=== PATIENT | male | born 1950 | race Caucasian/White ===

== ENCOUNTER 2016-04-16 11:58 | Inpatient (IN) | payer MEDICARE ==
[~2016-04-16] VITALS: Ht 170 cm; Wt 56.7 kg
[2016-04-16] VITALS (15 sets, daily range): BP systolic 92–112; BP diastolic 50–68
--- NOTE | ~2016-04-16 | PR ---
[place], [place] PROGRESS NOTE [facility]: [id number] UNIT #: [id number] ROOM: [facility] DOCTOR: MEGHA SMITH MD,VERONIKA BIRTHDATE: [birth year] DOS: 04/22/2016 SUBJECTIVE: The patient seen and examined on 04/22/2016. He was noted awake and alert at his baseline status. The patient has been noted no verbal response. He also has a tracheostomy remains in place. Electrolyte imbalance continued to be corrected. OBJECTIVE: VITAL SIGNS: For the patient, which has been recorded showed the patient the temperature noted as normal. The respiratory rate of the patient recorded as 18, heart rate 91, blood pressure 102/54. HEENT: Examination shows head was atraumatic. Eyes nonicterus. NECK: Supple. CARDIOVASCULAR: S1, S2 audible. LUNGS: Noted without any crackles, rhonchi, or wheezing. ABDOMEN: Soft, nontender. LABORATORY DATA: CBC today, hemoglobin 8.5, hematocrit 25.7, platelet count was normal. Renal function panel: Glucose 115, BUN 23, creatinine was normal. Sodium 132. IMPRESSION: The patient with improvement noted continued in the mental status with history of chronic multiple strokes for this patient. Current respiratory failure patient with ventilator dependency. PLAN OF TREATMENT: Continuation of the current therapy, plan of management as in progress without any changes. Continue usual medical management and therapy, plan of care, other usual treatment. Supportive care. Other therapy. Usual medical management. VERONIKA CLEVELAND MD CM:PNTRANS [phone] VERONIKA SMITH MD 04/23/16 0439 interface
--- NOTE | ~2016-04-16 | O ---
[place], [place] OPERATIVE NOTE NAME: JOSE A GOLDMAN UNIT #: [id number] ROOM: [facility]- DOCTOR: SAMINA CERVANTES,MELLISSA BIRTHDATE: [birth year] DOS: 04/18/2016 INDICATION: The patient has presented with chief complaint of severe anemia, drop in H and H, guaiac positivity. PROCEDURE: Today's procedure part of investigation is panendoscopy. PREMEDICATION: Versed and Diprivan. SCOPE: Olympus folding gastroscope Q10 video. REPORT: After putting the patient in left lateral position and after application of lubricant to the scope, the scope was introduced; thereafter, under direct visualization, advanced through the length of the esophagus without difficulty. Gastritis of moderate degree was noticed. Duodenitis of moderate degree was identified. No biopsies obtained due to the fact that anticoagulation may be needed. PLAN AND DISCUSSION: We are going to continue with Protonix 40 mg q. day and as far as the feeding per PEG is concerned, Diabeta source at 65 per hour. We are going to complement that with 20 mL of free water per hour per 24 hours continuous. Thank you very much indeed. MELLISSA HAAS MD CM:OPRECORD:OPERATIVE NOTE [id number] MELLISSA HAAS MD 04/19/16 1440 interface
--- NOTE | ~2016-04-16 | CON ---
[place], [place] REPORT OF CONSULTATION NAME[id number] UNIT #: [id number] ROOM: [facility]- DOCTOR: MELLISSA HAAS MD BIRTHDATE: [birth year] DOS: 04/18/2016 GASTROENDOSCOPIC CONSULTATION REPORT HISTORY OF PRESENT ILLNESS: This is a 65 years old gentleman who is bedridden, no line of communication. He is in ICU, is status post tracheostomy, respiratory insufficiency, pulmonic infiltrate. The data mostly obtained from the old records in the chart. There is no communication line. The patient ventilated through trach. PAST MEDICAL HISTORY: Associated with dehydration, severe hypernatremia, respiratory insufficiency, hypoxemia, multiple large decubitus ulcers, subarachnoid hemorrhage status post neurogenic dysphagia, protein calorie malnutrition. PAST SURGICAL HISTORY: PEG tube, trach tube, status post cardiac bypass. SOCIAL HISTORY: Nonsmoker, nonalcohol consumer at the present time. FAMILY HISTORY: Noncontributory. MEDICATIONS: List has been reviewed. ALLERGIES: No known medication. REVIEW OF SYSTEMS: Cannot be obtained from him due to status of cognitive incapability. PHYSICAL EXAMINATION: GENERAL: Bedridden, noncommunicating. VITAL SIGNS: Stable. HEENT: Eyes: Pupils round, reactive. Mouth: Dry, open. No thrush. No response otherwise. NECK: Hyperflexed, tracheostomy in place. LUNGS: Few scattered rhonchi bilaterally for respiratory assisted breath. HEART: Normal sinus rhythm. A systolic murmur grade 2 auscultated. ABDOMEN: Soft. No hepato-organomegaly. Bowel sounds present. PEG tube was adjusted. No pulsatile mass. EXTREMITIES: No cyanosis, no pedal edema, bilaterally dry. NEUROLOGIC: Unresponsive to pain stimulation or verbal stimulation. IMPRESSION: Neurogenic dysphagia, respiratory insufficiency, status post trach and status post coronary artery bypass, bedridden, other adjunctive diagnoses as outlined in paragraph past medical and surgical history. PLAN AND DISCUSSION: This patient has had anemia and guaiac positivity. I have been asked for assessment of the patient regarding the concern above. His labs and records reviewed. C. diff has been negative. Basic metabolic panel: Sodium of 165 and potassium of 3.3 the other day has been addressed. His comprehensive metabolic panel of today some improvement in sodium has been [place], [place] REPORT OF CONSULTATION NAME: JOSE A GOLDMAN UNIT #: [id number] ROOM: [facility] DOCTOR: SAMINA CERVANTES,MELLISSA BIRTHDATE: [birth year] noticed to 161. Liver function test, GOT, GPT of 44 and 108 is noticed. His initial CBC: H and H of 7 and 26 have been addressed. Lactic acid was not elevated and remains at 1.5. He is status post transfusion. We are going to proceed with panendoscopic assessment and stabilization. Thank you very much indeed. MELLISSA HAAS MD CM:CONSTR:REPORT OF CONSULTATION 1305 04/19/16 1437 interface
--- NOTE | ~2016-04-16 | PR ---
[place], [place] PROGRESS NOTE NAME: JOSE A GOLDMAN [facility] #: [id number] UNIT #: [id number] ROOM: [facility] DOCTOR: BLANCA HerediaCHAVEZ BIRTHDATE: [birth year] DOS: 04/23/2016 WOUND CARE PROGRESS NOTE SUBJECTIVE: The patient was seen today for a dressing change and to evaluate the sacral wound. He remains nonverbal and noncommunicative and does not follow any commands. OBJECTIVE: VITAL SIGNS: His vitals are stable. Temperature is 98.2, pulse of 92, respirations 20, blood pressure is 109/62. WOUND EXAMINATION: The wound on the sacrum is measuring a bit smaller. Of note, when we evaluated the patient, the dressing did not have a seal on it in the distal part, it was kind of open still; however, the VAC did not beep so it was a little bit unclear to me how long that has been going on for. There was some maceration on the periwound area and there was some noticeable blistering of the skin far above that wound from the OP site that was used and it is an intact blister that is blood filled, but not currently opened but this happened because of the OP site that is used for the adhesive of the wound VAC. The wound itself does look improved. There is fairly healthy granulation tissue. The measurements are approximately 9 cm in length x 6 cm in width x 1 cm, slightly deeper in the distal part at 1.2 cm in depth, but overall the depth does look better as well in general in the middle part of the wound. There is less undermining overall noted. The maximum depth I got was 2 cm instead of 3 and that was located at the 10-11 o'clock position, but there is a fair amount of undermining still present. There does not appear to be any active cellulitis or purulent material noted. LABORATORY DATA: His labs show a white count of 9.6, hemoglobin of 8.5, platelets of 155. Chem-7 is showing a low sodium of 131, chloride of 96, BUN of 25, glucose is 124. Albumin is markedly low at 2.0 ASSESSMENT AND PLAN: Large sacral wound, stage 4. I believe that the wound appearance looks improved from the last time I saw it; however, we are still having some issues with the periwound. There is maceration noted, which is probably the fact that the seal was not in place. I do not know how long this had been there for, but I would like to protect the skin with Calazime and skin prep over it, as well as a Versatel to any compromised areas to help prevent pulling of the skin from the OP site. In addition, I do not think we need to make the OP site film so large, I think we can try to concentrate it just around where the periwound is and hopefully get a good seal that way. There is some blistering that occurred from the OP site, those blisters are intact and they are blood filled so we will need to protect these areas as well. Try to keep them dry if possible and protect it with a foam over them. The wound on the left heel appears stable as well as the right ankle. The left ear wound was covered in DuoDERM today and I did not get a chance to evaluate this wound. Wound care orders have been written to continue for the wound VAC as well and I do not want to stop it since this seemed to be improving the wound at this time, but we do have to be careful about the periwound. [place], [place] PROGRESS NOTE NAME: JOSE A GOLDMAN UNIT #: [id number] ROOM: [facility] DOCTOR: CHAVEZ RIOS M.D. BIRTHDATE: [birth year] ADDENDUM This is a wound care progress note. I wanted to clarify the blistering that was noted on the back of the patient upon removal of the wound VAC was related to the dressing and not related to pressure. I do not feel that this qualifies as the pressure-related injury, but rather an injury from the adhesive from the wound VAC. They are intact blisters and partial thickness at this time. CHAVEZ RIOS MD CM:PNTRANS [phone] CHAVEZ RIOS M.D. 04/24/16 1052 interface
--- NOTE | ~2016-04-16 | PR ---
[place], [place] PROGRESS NOTE NAME: [id number] UNIT #: [id number] ROOM: [facility] DOCTOR: MEGHA SMITH MD,VERONIKA BIRTHDATE: [birth year] DOS: 04/23/2016 PULMONARY FOLLOWUP SUBJECTIVE: He has been noted awake and alert, remains on mechanical ventilator without any complications. He has not been noted any hemodynamic instability. OBJECTIVE: VITAL SIGNS: Normal temperature, respiratory rate 20, heart rate 92, blood pressure 109/62. Pulse oxygen saturation 30% oxygen was 98% saturation. HEENT: Examination shows no acute change. NECK: Supple. Tracheostomy in place. CARDIOVASCULAR: S1, S2 audible. LUNGS: Noted without any wheeze or crackles at the present time. ABDOMEN: Soft, nontender. LABORATORY DATA: The BMP for this patient this morning, BUN 25, creatinine 0.58. Sodium 131. Remaining electrolytes grossly normal. Blood culture, no bacterial growth from 16th of this month as the final results. IMPRESSION: 1. The patient with improvement in mental status with resolution of hypernatremia, acute kidney injury. 2. Chronic respiratory failure, ventilator dependency, stable. PLAN OF TREATMENT: Continue the current plan as previously without any changes. Continue usual care, plan of therapy, and other medical management. Usual care. Supportive therapy, plan of management. The patient could be transferred to the nursing facility at this time. VERONIKA CLEVELAND MD CM:PNTRANS [phone] VERONIKA SMITH MD 04/24/16 0050 interface
--- NOTE | ~2016-04-16 | CON ---
[place], [place] REPORT OF CONSULTATION [id number] UNIT #: [id number] ROOM: [facility]- DOCTOR: VERONIKA AMEZCUA MD BIRTHDATE: [birth year] DOS: 04/17/2016 PULMONARY CONSULTATION EVALUATION AND MANAGEMENT REASON FOR CONSULTATION: Of the patient to assess for continued mechanical ventilation requirement for his respiratory failure. HISTORY OF PRESENT ILLNESS: A 65-year-old white male who is currently a resident of a prison. The patient had been treated in one of the [facility], had been treated and transferred [facility] about a week ago. The patient required the mechanical ventilatory support, which is provided during the [facility]. The patient has been currently noted unresponsive patient and remains on mechanical ventilator. The history of the patient has been reviewed for the patient after review of the previous documentation medical records of the patient as well. The patient had routine labs done, which shows evidence of severe hypernatremia and was sent to the hospital for further assessment and for the management. He has been getting intravenous fluids D5W for the patient for the medical management. REVIEW OF SYSTEMS: Could not be completed of the patient current intubation and mechanical ventilation status and unresponsiveness. PAST MEDICAL HISTORY: Was noted with: 1. History of multiple strokes, previous history of brain aneurysm. 2. Chronic hypoxic respiratory failure, oxygen dependency and current permanent tracheostomy. 3. Oropharyngeal dysphagia with PEG tube in place. 4. History of centrilobular emphysema. 5. Decubitus wounds. 6. Past history of severe protein calorie malnutrition. 7. History of subarachnoid hemorrhage. 8. History of Pseudomonas aeruginosa pneumonia. 9. History of chronic protein calorie malnutrition, moderate to severe in nature. 10. Permanent ventilator dependency at the present time. PAST SURGICAL HISTORY: 1. Noted with PEG tube insertion. 2. Tracheostomy, which was done during his admission in [facility] in [place], [place]. SOCIAL HISTORY: The patient is currently . He has been living in the nursing facility and been in the hospital in the past several months. FAMILY HISTORY: The patient was unknown. MEDICATIONS: Current administered medication was noted as use of Lipitor, vitamin D, vitamin C, amlodipine, Levemir insulin, Protonix, metoprolol tartrate, albuterol sulfate with the nebulizer, IV vancomycin, Zosyn, and Levaquin. He is also getting some other p.r.n. medications. [place], [place] REPORT OF CONSULTATION NAME: JOSE A GOLDMAN UNIT #: [id number] ROOM: [facility] DOCTOR: MEGHA SMITH MD,VERONIKA BIRTHDATE: [birth year] ALLERGIES: The drug allergy noted no known drug allergies. PHYSICAL EXAMINATION: GENERAL: A 65-year-old white male currently noted completely unresponsive on the mechanical ventilator, tracheostomy in place. Height of 5 feet 7 inches, weight of 125 pounds, BMI 19.6. VITAL SIGNS: Shows temperature has been noted normal, respiratory rate 12-16 in the last 24 hours. Heart rate ranging between 85-81, blood pressure 107/59-98/59. Pulse oxygen saturation of the patient noted on 40% oxygen 100% saturation. HEENT: Head was atraumatic. The eyes were nonicterus. The tracheostomy in place. CARDIOVASCULAR SYSTEM: S1, S2 is audible. LUNGS: For this patient was noted with mild decreased breath sounds without any wheeze or crackle. PEG tube in place. ABDOMEN: Soft. EXTREMITIES: For this patient was noted with the past CVA. SKIN: No abnormal lesions or rashes except decubitus wound of the patient noted in the sacrococcygeal area. MUSCULOSKELETAL: Symptoms noted with some deformities of the extremities. LABORATORY DATA: The CBC of the patient on 04/16/2016, hemoglobin 7.3, hematocrit 26.5, WBC count and platelet count were normal. CMP of the patient of 04/16/2016, glucose 121, BUN 75, creatinine was normal, sodium 175, chloride of 134, CO2 of 34. AST 103, ALT 132. Lactic acid on 04/16/2016 was 1.5. CBC of 04/16/2016 for this patient noted, hemoglobin 6.9, hematocrit 24.4, platelet count and WBC count was normal. Arterial blood gas that was done yesterday, pH of 7.47, pCO2 of 47, pO2 156 on 40% oxygen with assist control mode mechanical ventilation. Influenza A and B, nasal washing antigens were negative. The CBC of the patient that was done this morning, WBC count 17.6, hemoglobin 8.8, hematocrit 30.1, platelet count was normal. This was done after a couple of blood transfusion for the patient in the last 24 hours. CMP this morning, glucose 122, BUN 71, creatinine were normal. Sodium 172, potassium 3.4, chloride of 133. Albumin of 2.1. PT, PTT were normal. Culture of the endotracheal aspiration noted with moderate growth of gram-positive cocci with many white blood cells, moderate gram-negative bacilli. The cultures of the sacrococcygeal wound for this patient were noted with isolation of moderate growth of gram-positive cocci and gram-negative bacilli. Repeat BMP another one for this patient shows glucose 232, BUN 71, creatinine 1.2, sodium 165, potassium 3.3, chloride of 128. Review of the radiology data for this patient, chest x-ray of the patient that was done for this patient yesterday of the patient showed tracheostomy was noted in place. There was no acute pulmonary infiltration visible. Calcified granuloma noted in the right lower lobe. IMPRESSION: 1. The patient who had been currently admitted to the hospital with worsening of the mental status with very severe hypernatremia secondary to intravascular volume depletion and azotemia. 2. Acute tracheobronchitis with Gram-positive cocci possibility of [place], [place] REPORT OF CONSULTATION NAME: JOSE A GOLDMAN UNIT #: [id number] ROOM: [facility] DOCTOR: MEGHA SMITH MD,[facility] BIRTHDATE: [birth year] methicillin-resistant Staphylococcus aureus would be considered. 3. Coccygeal wound for this patient, which has been noted decubitus wounds with gram-positive, gram-negative infection, being treated. 4. Hyperkalemia secondary to current medication administration. 5. History of past several strokes for the patient as well as the brain aneurysm and subarachnoid hemorrhage. 6. Chronic hypoxic respiratory failure, ventilator dependent secondary to neurologic events. PLAN OF TREATMENT: Continue current antibiotic for this patient at this time as previously in progress mechanical ventilator for this patient and to continue the same. No changes need to be done. Monitor results of the endotracheal aspirate. Make he gets the antibiotic based on the progression of the illness. Correction of the sodium gradually for the patient for the medical management of hypernatremia. Nutrition support for the patient to be continued. The oxygen supplementation may be reduced to 30% on the mechanical ventilator. Also order a prealbumin level for this patient to be done in the morning for assessment of his nutritional status. Usual care. Other supportive plan of management. Overall prognosis of the patient is guarded. Thanks for allowing me to participate in the care of this patient. VERONIKA CLEVELAND MD CM:CONSTR:REPORT OF CONSULTATION 1259 04/18/16 1212 interface
--- NOTE | ~2016-04-16 | PR ---
[place], [place] PROGRESS NOTE NAME: JOSE A GOLDMAN [facility] #: [id number] UNIT #: [id number] ROOM: [facility] DOCTOR: MEGHA SMITH MD,VERONIKA BIRTHDATE: [birth year] DOS: 04/18/2016 PULMONARY PROGRESS NOTE SUBJECTIVE: The patient seen and examined on 04/18/2016. He has been continued on mechanical ventilator, remains unresponsive. The culture of the sputum for the patient was noted with isolation of moderate gram-negative bacilli as Serratia marcescens, which are noted sensitive to certain antibiotics and resistant to others. The mechanical ventilation with continued assist control mode mechanical ventilation without any difficulty or problems. OBJECTIVE: VITAL SIGNS: Reported as normal temperature, respiratory rate 20, heart rate 75, blood pressure 108/60. Pulse ox saturation 30% oxygen, 100% saturation. HEENT: Examination shows no acute change. NECK: Supple. CARDIOVASCULAR: S1, S2 audible. LUNGS: Noted without any wheezing or crackles at the present time. ABDOMEN: Soft, nontender. LABORATORY DATA: CBC this morning, WBC count 15.7, hemoglobin 8, hematocrit 26.5, platelet count was normal. The urine culture for the patient was noted with Pseudomonas aeruginosa and the sputum culture was noted with Serratia marcescens. Culture of the wound for the patient noted with Pseudomonas aeruginosa and MRSA. BMP of the patient that was done today shows glucose 95, BUN 52, creatinine was normal, sodium 161, potassium 3.4, chloride 126, AST, ALT mildly elevated. IMPRESSION: 1. The patient with chronic change in mental status noted with acute hypernatremia, which had been responding to current treatment. 2. Acute tracheobronchitis with Escherichia coli. 3. Decubitus wound with gram-positive infection as methicillin-resistant Staphylococcus aureus and gram-negative infection, Pseudomonas aeruginosa. 4. Possibility of urinary tract infection, Pseudomonas aeruginosa has been also considered. 5. History of previous multiple strokes for the patient and aneurysm, and vent dependency. PLAN OF TREATMENT: Continue mechanical ventilation, adjustment of antibiotics for the patient based on the culture results. Continuation of other treatment, therapy plan and management as in progress. Usual care. Supportive care. Other therapy. Usual medical management, plan of care. Make further change in treatment based on progression of the illness. Assessment and management has been discussed with the patient's son at the bedside today. [place], [place] PROGRESS NOTE NAME: JOSE A GOLDMAN UNIT #: [id number] ROOM: [facility] DOCTOR: MEGHA SMITH MD,VERONIKA BIRTHDATE: [birth year] VERONIKA CLEVELAND MD CM:ELIEL [phone] VERONIKA SMITH MD 04/19/16 0457 interface
--- NOTE | ~2016-04-16 | PR ---
[place], [place] PROGRESS NOTE NAME: JOSE A GOLDMAN [facility] #: [id number] UNIT #: [id number] ROOM: [facility] DOCTOR: JAMIE RAMOS,JUNE BIRTHDATE: [birth year] DOS: SUBJECTIVE: The patient is a chronic vent patient who is currently on Cipro and vancomycin for pseudomonas, MRSA and a sacral decubitus as well as a pseudomonas in the urine and Serratia in the sputum. He is being treated for tracheobronchitis. He is afebrile. The patient himself opens his eyes and tracks, but he is otherwise unresponsive. Again, he is vented and trached. He has had no emesis or diarrhea per nursing. He has been afebrile. Vital signs show temp 98.0, pulse 83, respirations 18, BP 93/54. LABORATORY DATA: Cultures as reviewed above. His blood cultures remained sterile. WBCs 9.8, platelets 162, BUN 25, creatinine 0.7, vancomycin trough 17.4. CURRENT MEDICATIONS: Include vancomycin, ciprofloxacin, Humalog, Lipitor, vitamin D, vitamin C, Norvasc, Levemir, Protonix, Lopressor, Peridex mouthwash, Tylenol, nystatin. PHYSICAL EXAMINATION: VITAL SIGNS: Show a temperature of 98.0, pulse 83, respirations 18, BP 93/54. GENERAL: A 65-year-old male, in no acute distress. Again, he opens his eyes, but does not really track or respond meaningfully. He is vented and trached, pale trach secretions. HEAD, EYES, EARS, NOSE AND THROAT: Normocephalic, no thrush. Trach site, no purulent discharge or cellulitis. LUNGS: Clear to auscultation bilaterally. Respirations even and unlabored. HEART: Regular rhythm. No murmur appreciated. ABDOMEN: Soft, nondistended. PEG site, no cellulitis. EXTREMITIES: Left upper extremity PICC line in place. Dressing dry and intact. No signs of phlebitis. Extremities, right upper extremity +1-2 edema. No lower extremity edema. Carranza catheter draining clear yellow urine and he has a wound VAC to his sacral decubitus. ASSESSMENT: Sacral decubitus as well as a pseudomonas bacteriuria and Serratia tracheobronchitis. PLAN: He is currently on Cipro and IV vancomycin. I would anticipate 14 days of treatment. Case discussed with Dr. Luisana Quiroga. NICOLE AYALA CNP [place], [place] PROGRESS NOTE NAME: JOSE A GOLDMAN [place] UNIT #: [id number] ROOM: [facility] DOCTOR: JAMIE RAMOS BIRTHDATE: [birth year] LUISANA QUIORGA MD CM:PNTRANS [id number] JAMIE RAMOS 04/21/161814 interface
--- NOTE | ~2016-04-16 | PR ---
[place], [place] PROGRESS NOTE NAME: JOSE A GOLDMAN [facility] #: [id number] UNIT #: [id number] ROOM: [facility]- DOCTOR: MEGHA SMITH MD,VERONIKA BIRTHDATE: [birth year] DOS: 04/20/2016 PULMONARY PROGRESS NOTE SUBJECTIVE: The patient has been noted without any acute distress. He was noted awake. Does not follow vocal commands. He has not been noted in the unconscious status. He remains on mechanical ventilator, tracheostomy in place. He has not been noted with any acute hemodynamic instability. Continued to be managed for several infections known including MRSA tracheobronchitis. OBJECTIVE: VITAL SIGNS: For the patient, which has been recorded showed the temperature noted as normal, respiratory rate 27, heart rate 80, blood pressure 108/74. Intake for the patient is 4700, the output was 3300 mL. The pulse oxygen saturation was noted on 30% oxygen 95% saturation. HEENT: No new change. NECK: Supple. CARDIOVASCULAR: S1, S2 audible. LUNGS: For the patient noted without any wheezing or crackles at the present time. ABDOMEN: Noted flat, PEG tube in place. EXTREMITIES: Shows no new changes. LABORATORY DATA: CBC of this morning for the patient noted with hemoglobin 8.9, hematocrit 27.8, platelet count 151,000. CMP: Glucose 163, BUN 20, creatinine was normal. Potassium of 3.4. Blood cultures, no bacterial growth for the patient from 04/16/2016. Urine cultures were noted without any bacterial growth. IMPRESSION: 1. The patient with improvement has been noted in the mental status of this patient with resolved hypernatremia, improved acute kidney injury of the patient secondary to volume contraction and dehydration. 2. History of previous stroke with change in mental status, otherwise were noted chronic. 3. Acute tracheobronchitis. 4. Several decubitus wound for this patient as well. 5. Respiratory failure with ventilator dependency. PLAN OF TREATMENT: From the pulmonary standpoint, the patient could be assessed for discharge to the nursing facility if he is noted ready for that. Continuation of the bronchodilator. Continue current mechanical ventilatory support for this patient in assist control mode of mechanical ventilation, monitoring of the labs and other care. Usual care, other supportive therapy, plan of management. No changes in the management needed for today. [place], [place] PROGRESS NOTE NAME: JOSE A GOLDMAN UNIT #: [id number] ROOM: [facility] DOCTOR: VERONIKA AMEZCUA MD BIRTHDATE: [birth year] VERONIKA CLEVELAND MD CM:PNTRANS [id number] VERONIKA SMITH MD 04/21/16 0036 interface
--- NOTE | ~2016-04-16 | CON ---
[place], [place] REPORT OF CONSULTATION [facility] [id number] UNIT #: [id number] [facility] DOCTOR: NOEMI GALLEGO MD BIRTHDATE: [birth year] DOS: 04/16/2016 NEPHROLOGY CONSULTATION REASON FOR CONSULTATION: Hypernatremia. REQUESTED BY: The hospitalist service. 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 He is status post tracheostomy and percutaneous gastrostomy tube insertion at that time. He was doing a rehabilitation for a period time at [facility], but had a witnessed questionable aspiration versus apnea event. He has a bioprosthetic aortic valve replacement done in 2013, also at [facility] [place]. He presented in late January to [facility] in the Medical Intensive Care Unit. He is notable to have a multifocal pneumonia. Sputum cultures grew MRSA on admission and blood cultures grew coag negative Staph auricularis and Staph pettenkoferi. He had a series of 3 different transesophageal echocardiograms performed on 03/02/2016, 03/14/2016, and 04/04/2016. They demonstrated a 0.6-0.8 cm filamentous echodensity on the left ventricular outflow track of the aortic valve. Infectious Disease was consulted and because of the possibility of endocarditis, they recommended completion of 14 days of vancomycin for the bacteremia. He did complete this and surveillance cultures were noted to be negative. Sputum cultures and urine cultures; however, remained positive and he was treated for these, appears he was also noted to have Pseudomonas in the urine and E. coli in the urine. The patient was noted to have initially hyponatremia for a period of time and then hypernatremia. His serum sodium peaked at 153 on 03/19/2016 after having almost a week without chemistries drawn at the hospital, then with free water, it came down to 132, started trending back upwards and on discharge day it was 147, that was on 04/10/2016. Six days later, today when he presented to the Emergency Department, his sodium was noted to be 175. His serum creatinine is 1.15, which is up from his baseline of 0.5. He has had periodic elevations up to 1.3 when he had hypernatremia at [facility] MICU as well. There is some question whether or not he was taking sodium tablets per the nurse, but it does not appear that, that is on board right now. He had multiple wounds. He has a PEG tube. He has skin breakdowns as well as a wound VAC on his coccyx. He has been given protein supplementations and was on tube feeds supposedly. The amount of volume of diarrhea is not clear. Vital signs on arrival, systolics in the 100s-90s and saturations were 100% on FiO2 of 40%. There was no documented fever. White blood cell count is 10.6, his hemoglobin right now is 6.9, platelets are 206. His hemoglobin on discharge day was 7.6 and had been as low as 7 on . Sodium is rechecked at 174. Lactic acid was 1.5, calcium 8.6, magnesium 3.0. AST and ALT are elevated to 220 and 250 respectively. They were not checked since admission when I looked through the [facility] records. Urine culture has been ordered and is pending. Chest radiograph was done from January. Most recent chest radiograph in [facility] from 04/06/2016 showed improved aeration of the right lung base. There was a head CT and a brain MRI from January and March, most recent was the head CT in [place], [place] REPORT OF CONSULTATION NAME: JOSE A GOLDMAN UNIT #: [id number] ROOM: [facility] DOCTOR: NOEMI GALLEGO MD BIRTHDATE: [birth year] which showed prior infarcts, no definitive new finding was noted. REVIEW OF SYSTEMS: Further HPI and any history from the patient cannot be obtained at this time. PAST MEDICAL HISTORY: As noted in the HPI. FAMILY AND SOCIAL HISTORY: Cannot be obtained from the patient at this time. PHYSICAL EXAMINATION: VITAL SIGNS: 98.4, 86, 10, 96/64, 100% on 40% FIO2. GENERAL: The patient is a chronically critically ill appearing, very weak, sarcopenic, not responsive to stimuli except for significant noxious stimuli. This appears to be stable from [facility] records as well status post strokes. He has a rectal tube in place. Multiple skin abrasions, breakdowns which are dressed. Significant sarcopenia and wasting noted. LUNGS: Appear fairly clear. HEART: His cardiac rate is regular. No audible rub. ABDOMEN: PEG tube is in place. No overt drainage or discharge noted. SKIN: Pale, but otherwise without diffuse rashes other than breakdowns noted. LABORATORIES AND DIAGNOSTIC DATA: Were reviewed in detail including the urinalysis, CBC, and chemistries and those mentioned above. A urinalysis is also concerning for a possible infection again and a culture is pending. ASSESSMENT AND PLAN: Severe hypernatremia. This appears to be acute and it has been in the last week that it has been elevated making a water deficit most likely from increased GI losses most likely given the history of C. diff. Ongoing therapy and follow up with Infectious Disease is recommended. From a volume standpoint, I agree with initially 1 liter of normal saline. Monitoring his blood pressures will be paramount in this condition. The possibilities of blood transfusion have also been discussed with the hospitalist service and I agree that, that may be helpful at this point. Serial chemistries will be drawn at 4 hour intervals as able based on his vasculature. I think that we will change him to hypotonic fluids with half normal saline for now to avoid overcorrection, though I do think that the pacer correction should be as much of an issue for him as this is acute, slightly hypernatremia is most likely going to be better for his interest his real pressures as well. Neurologic followup may be something that we need to find out about in a long-term situation to figure out if whether or not he is going to require further EEG testing or any other functional neurologic testing. He has LINDA but no known CKD. His baseline serum creatinine appears to be 0.5-0.6. Follow this trend as we continue to volume replace him. Possible sepsis, is undergoing workup, recent pneumonia, possible endocarditis and a recent urinary tract infection with a recurrence possible will all be followed and cultures are in order. Thank you very much for the kind consultation. Case was discussed with Dr. Uribe. [place], [place] REPORT OF CONSULTATION NAME: JOSE A GOLDMAN Kirstin UNIT #: [id number] ROOM: [facility] DOCTOR: JULIÁN CERVANTES,NOEMI Beatty BIRTHDATE: [birth year] NOEMI GALLEGO MD CM:CONSTR:REPORT OF CONSULTATION 1531 05/25/16 1434 interface
--- NOTE | ~2016-04-16 | PR ---
[place], [place] PROGRESS NOTE [id number] UNIT #: [id number] ROOM: [facility]- DOCTOR: BLANCA HerediaCHAVEZ BIRTHDATE: [birth year] DOS: 04/19/2016 SUBJECTIVE: The patient is awake, but does not follow any commands. Nursing staff reports that there is a new open area on his left ear that possibly may have occurred from him scratching himself, it is not quite clear. There is a little bit of blood on his finger as well, which may indicate that he may have scratched himself. His vitals are stable. Temperature is 98.4, pulse is 82, respirations 25, blood pressure is 116/67, pulse ox is 93%. The wound VAC was removed today. He does have a rectal pouch present that does seem to be sealed fairly well at this time. The wound VAC was removed and the areas in general around the wound definitely looks improved to me, it is much less reddened and much less irritated than before, in addition to some of the area of denuded skin looks also to be improved. The base of the wound looks fairly clean. There is exposed muscle and fascia as before. The length was measured approximately 10 cm. The width is approximately 8 cm. The depth is still at least 1 cm. There is still a large amount of undermining, still mostly towards this at the 9 o'clock position and is at least 3 cm PHYSICAL EXAMINATION: Wound measurements were already given. The culture of the wound is growing some Staph aureus, moderate as well as Pseudomonas aeruginosa and the Staph is MRSA. There is an open area on his left ear, which is circular in nature, although is superficial. It is full thickness and there does seem to be some exposed cartilage, I would say measuring approximately 0.5 x 0.5 x 0.1. This appears to be a pressure related injury as when the patient tends to keep his head turned to the left side and has a neck pillow that seems to be right against this area which I think may be the cause of this wound. However, it is also possible that he may have scratched himself, but I think it is also a possibility that it is pressure related ulcer. ASSESSMENT AND PLAN: A large sacral pressure ulcer, stage 4. I do not see a huge improvement in the margins as far as the depth goes with the undermining. However, the surrounding tissue does look to be a little bit better than it was when he first came in. The silver foam that we had ordered apparently is not available, so I would tend to want to use something for antimicrobial purposes and will try a thin layer of TheraHoney at the base of the wound in addition to the GranuFoam that we are using already. We will continue to keep the surrounding area protected with Calazime and Versatel. Hopefully, this will keep the periwound from becoming injured from the picture framing. In addition, he does seem to have an ulcer on his left ear, which may be pressure related. It is a full thickness and since there is no subcutaneous tissue in this area, it would be classified as a stage 4. This may also be possibly self-inflicted. It is hard to tell, but I think that as he does tend to keep his head turned towards that position right around that area, makes me think that it is pressure related. He did have a neck pillow on which seemed to be really rubbing against that particular area, so we will have to try other pillows and body positions to help avoid pressure on this area. In the meantime, I would keep this area covered and protected with DuoDERM for now. This can be changed every third day. Also, as far as the sacral wound goes, he does have a bed that turns from side to side, which may be contributing to part of the undermining and shearing [place], [place] PROGRESS NOTE NAME: [facility]: [id number] UNIT #: [id number] ROOM: [facility] DOCTOR: CHAVEZ RIOS M.D. BIRTHDATE: [birth year] injury to this wound. It would be more beneficial to try turning the patient manually if possible and to keep him at least on a 30 degree angle with wedges and pillows and to keep him on his pressure relieving mattress if it is okay from a pulmonary standpoint. This patient definitely has poor nutritional status and this will definitely need to be addressed as well. Due to the patient's multiple medical problems and severity of his wounds, wound healing will be difficult. After further discussion with staff, it was felt that the wound that was located on the left ear was most likely caused by him scratching his own ear with his nails as it did seem that he had some blood that was found on his nails. So, this is the most likely scenario of the cause of this. However, we will have to monitor the patient carefully and protect this area from further damage and this area must be offloaded appropriately in order to prevent worsening of this area. CHAVEZ RIOS MD CM:PNTRANS [id number] CHAVEZ RIOS M.D. 04/20/16 0809 interface
--- NOTE | ~2016-04-16 | CON ---
[place], [place] REPORT OF CONSULTATION [facility] [id number] UNIT #: [id number] ROOM: [facility] DOCTOR: CHAVEZ RIOS M.D. BIRTHDATE: [birth year] DOS: 04/16/2016 This is the wound care consultation HISTORY OF PRESENT ILLNESS: This is a 65-year-old male who comes from a retirement, [facility] for abnormal blood work. He had a sodium level of 175. The patient is essentially nonverbal, has a tracheostomy and had a wound VAC in place for a large sacral coccyx wound. Wound care has been consulted for wound care orders. He has a history of recent subarachnoid hemorrhage and had been in the hospital for quite an extended period of time and then was transferred to [facility] on 04/11/2016 with a wound VAC in place. He had the black foam apparently noted. There were also areas of other wounds on his right ankle and left heel that are also noted. PAST MEDICAL HISTORY: Currently obtained from the chart. The patient has a history of aspiration pneumonia with a brain aneurysm, multiple strokes. He is a retirement resident. COPD, history of C. diff, history of multidrug resistant Pseudomonas aeruginosa infection, hyperlipidemia, hypertension, insulin-dependent diabetes, severe protein calorie malnutrition, subarachnoid hemorrhage, vitamin D insufficiency. He has a PEG tube in place, a tracheostomy. SOCIAL HISTORY: The patient is a retirement patient. FAMILY HISTORY: Unknown. ALLERGIES: No known drug allergies. CURRENT MEDICATIONS: His medications that have already been ordered are as follows: Protonix 40 IV daily, Levaquin 150 mL IV daily, Zosyn 4.5 g IV q. 6 hours, nystatin p.o. q.i.d. He is on D5W, Zofran p.r.n., morphine p.r.n. REVIEW OF SYSTEMS: Unobtainable. PHYSICAL EXAMINATION: VITAL SIGNS: His temperature is 99.5, pulse is 88, respirations are 10, blood pressure is 105/66. His pulse ox is 100% on a ventilator. GENERAL: This patient is quite debilitated, markedly cachectic and nonverbal, does not follow any commands. He has a tracheostomy. LUNGS: Clear to auscultation anteriorly. CARDIOVASCULAR: S1, S2, regular rate and rhythm. Systolic murmur appreciable. ABDOMEN: Soft, has positive bowel sounds, nontender. EXTREMITIES: He has no edema. He does have a stable eschar on his left heel. It is located at the medial aspect of the left heel. It is a stable eschar. There is no surrounding erythema, purulence, or tenderness to suggest any infection. It is dry. He does have positive pedal pulses and his feet are warm. It is approximately measuring 3 cm in length x 2 cm in width. There is no depth to it. There is a very, very small area also of a stable eschar on the right ankle that is very small at 0.5 x 0.5 x 0.1, it is stable. There is no evidence of infection. He has a very large sacral coccyx wound that is noted [place], [place] REPORT OF CONSULTATION NAME: JOSE A GOLDMAN UNIT #: [id number] ROOM: [facility] DOCTOR: CHAVEZ RIOS M.D. BIRTHDATE: [birth year] approximately 8 to 9 cm in length x 8 to 9 cm in width and at least 1 cm in depth at the deepest depth. There is some undermining noted generally all the way around the wound. The deepest area is at the 9 o'clock position that I could see at approximately 3 cm. It is a very deep wound. There does appear to be some fascia exposed. I do not see any obvious bone exposure at this time. There is minimal necrotic tissue present. Around this, there is a concern of areas of breakdown, likely from the wound VAC picture framing that appears to be skin tear related. There are 2 areas, one is approximately the size of a silver dollar on the right side of the wound and there is another one that is approximately a quarter size on the left side of the wound. This is the area in between the wound and the rectal area where he has a rectal bag. It is not a rectal tube, but a bag in place. There is unfortunately an area of the rectal bag that is not really adherent and has some obvious contamination of feces around this area. The wound itself does look fairly clean in my opinion. LABORATORY DATA: Show a white count of 10.6, hemoglobin of 6.9, hematocrit of 24.4. His sodium is markedly elevated at 174, chloride is 134, bicarb is 33, BUN is 83, creatinine is 1.15, glucose is 162. Magnesium is high at 330. AST, ALT is elevated 220 and 250, albumin is 2.4. Urine has 2+ blood, 1+ protein, positive nitrite, 3+ leukocyte esterase, 21 to 30 WBCs, trace bacteria noted. Chest x-ray shows COPD and no acute pulmonary disease. He does have a fairly large amount of liquid stool present in the rectal pouch. ASSESSMENT AND PLAN: Very large pressure ulcer that is quite deep at this time. There is some granulation tissue noted, but it still is deep, I do not feel bone or see bone at this time. However, it is quite deep. I would continue with the wound VAC for now. I have written orders for silver foam of 125 of negative pressure; however, I would try and protect those areas of skin damage that have occurred likely from the previous wound VAC. On those areas, I would use some TheraHoney and use Versatile to protect them, we could use the OP site picture framing sheet over that and hopefully that will keep those areas from further damage. We should try to keep it offloaded and really avoid direct pressure to the wound at this time. The area of concern is the rectal pouch that he has, does not seem to be sticking quite well and there is some concern of contamination of feces into the wound. If we could get a good seal on this, then we can continue with that or consider a rectal tube so that is something that we will need to monitor carefully. Due to the depth of the wound, I would consider getting an x-ray of the sacral coccyx area as well to see if there has been any kind of bony destruction visible on x-ray. As far as his left heel wound, I would just leave this one alone, it is stable and I would just try to keep it dry and offload it as best as we can. This patient has multiple medical problems. Of concern is his extreme electrolyte disturbances which is being managed by his medical team. I will follow along with you. [place], [place] REPORT OF CONSULTATION NAME: JOSE A GOLDMAN UNIT #: [id number] ROOM: [facility] DOCTOR: CHAVEZ RIOS M.D. BIRTHDATE: [birth year] CHAVEZ RIOS MD CM:CONSTR:REPORT OF CONSULTATION 1714 04/17/16 0919 interface
--- NOTE | ~2016-04-16 | PR ---
[place], [place] PROGRESS NOTE NAME: JOSE A GOLDMAN UNIT #: [id number] ROOM: [facility] DOCTOR: VERONIKA AMEZCUA MD BIRTHDATE: [birth year] DOS: 04/19/2016 SUBJECTIVE: The patient seen and examined in in Intensive Care Unit. He has been continued on mechanical ventilator with a tracheostomy in place. The patient has been noted with opening his eyes this morning which were noted complete unresponsiveness. He has been noted comfortable without any distress at this time. He has been continued to be managed for severe hypernatremia. OBJECTIVE: VITAL SIGNS: For the patient which has been recorded showed normal temperature, respiratory rate 21, heart rate of 78, blood pressure 126/76. Pulse oxygen saturation noted on 30% oxygen 90% saturation. HEENT: Tracheostomy in place. Edentulous status. CARDIOVASCULAR: S1, S2 audible. LUNGS: No wheeze or crackles. ABDOMEN: Soft. PEG tube in place. EXTREMITIES: Show no edema. LABORATORY DATA: CBC: WBC count 11.7, hemoglobin 8.2, hematocrit 26.5, platelet count was normal. Urine culture PMN no bacterial growth. Final culture results pending. Renal function panel today showed BUN 31, creatinine was normal, sodium 154, potassium 3.2, chloride 118, albumin 1.9. IMPRESSION: 1. The patient with acute MRSA tracheobronchitis with urinary tract infection and decubitus wound infection, gram-positive, gram-negative organisms. 2. Improvement in the mental status noted. 3. Chronic bedbound status: The patient with history of multiple strokes and other problems. 4. Decubitus wounds. PLAN OF TREATMENT: Continue the current plan of management at this time in progress without any changes. Continue the therapy, plan of care and other usual medical management. Supportive care. Other therapy and plan of management. [place], [place] PROGRESS NOTE NAME: JOSE A GOLDMAN UNIT #: [id number] ROOM: [facility] DOCTOR: VERONIKA AMEZCUA MD BIRTHDATE: [birth year] VERONIKA CLEVELAND MD CM:PNTRANS 1259 VERONIKA SMITH MD 04/20/16 0138 interface
--- NOTE | ~2016-04-16 | PR ---
[place], [place] PROGRESS NOTE NAME: [id number] UNIT #: [id number] ROOM: [facility] DOCTOR: MEGHA SMITH MD,VERONIKA BIRTHDATE: [birth year] DOS: 04/24/2016 PULMONARY PROGRESS NOTE SUBJECTIVE: He was seen and examined on 04/24/2016. He has been noted without any distress at this time, noted baseline mental status remains on mechanical ventilator assist control mode without any difficulty. OBJECTIVE: VITAL SIGNS: Normal temperature, respiratory rate 25, heart rate 83, blood pressures 126/60. Pulse oxygen saturation of the patient noted on 30% oxygen as 98% saturation. HEENT: On examination, tracheostomy in place. NECK: Supple. CARDIOVASCULAR SYSTEM: S1, S2 is audible. LUNGS: For the patient noted without any wheezing or crackles. ABDOMEN: Soft, nontender. LABORATORY DATA: BUN and creatinine of the patient noted normal today. Vancomycin level 14.4. IMPRESSION: The patient with acute tracheobronchitis. The patient with MRSA, permanent tracheostomy, respiratory failure, decubitus wounds. PLAN OF TREATMENT: Continuation of the current plan of management as in progress. Continuation of the decubitus wound care. Other supportive therapy and plan of management. Usual care. VERONIKA CLEVELAND MD CM:PNTRANS [phone] VERONIKA SMITH MD 04/25/16 0108 interface
--- NOTE | ~2016-04-16 | PR ---
[place], [place] PROGRESS NOTE NAME: JOSE A GOLDMAN UNIT #: [id number] ROOM: [facility] DOCTOR: VERONIKA AMEZCUA MD BIRTHDATE: [birth year] DOS: 04/21/2016 PULMONARY FOLLOWUP NOTE SUBJECTIVE: He was seen in the Intensive Care Unit, remains on mechanical ventilator, stable. The mental status of the patient was noted probably close to baseline. The patient was noted awake. Does not follow vocal commands. Mechanical ventilation was continued. OBJECTIVE: VITAL SIGNS: Shows normal temperature, respiratory rate 20, heart rate 80, blood pressure 112/64-118/62. Intake is 3000, output 1900 mL. The pulse oxygen saturation 30% oxygen 98% saturation recorded. NECK: Supple. CARDIOVASCULAR: S1, S2 audible. LUNGS: Shows no wheezing or crackles at this time. ABDOMEN: Soft, nontender. LABORATORY DATA: Renal function panel today, BUN was 25, creatinine was normal, glucose 104, sodium 134, albumin 1.9. Vancomycin trough level 17.4. CBC: Hemoglobin 9.5, hematocrit 28.9, WBC count and platelet count were normal. IMPRESSION: 1. Stable respiratory status with chronic hypoxic respiratory failure with acute tracheobronchitis with methicillin-resistant Staphylococcus aureus decubitus wounds. 2. Resolution of the severe hypernatremia. 3. History of multiple strokes with chronic change in mental status. PLAN OF TREATMENT: Continuation of current plan of management at this time with continue the patient on mechanical ventilation current settings. All other supportive therapy, plan of management. Usual care. All other supportive care as in progress. Usual treatment and plan of care. [place], [place] PROGRESS NOTE NAME: JOSE A GOLDMAN UNIT #: [id number] ROOM: [facility] DOCTOR: VERONIKA AMEZCUA MD BIRTHDATE: [birth year] VERONIKA CLEVELAND MD CM:PNTRANS [phone] VERONIKA SMITH MD 04/22/16 0453 interface
[~2016-04-16 11:58] MED LIST: ACID CONTROLLER20 M1 PEG; ALBUTEROL2.5 MG/0.5 INH; AMLODIPINE BES1 CAP PO; AMLODIPINE BESY10 MG PEG; ATORVASTATIN CA20 M1 PEG; BACTRIM DS 8001 TA1 PO; DULCOLAX10 M1 RC; HEPARIN SO5000 UNIT1 SQ; METOCLOPRAMIDE5 MG PO; METOPROLOL SUCC25 M2 PO; MOM30 M1 PO; NITROSTAT0.4 MG PO; SANTYL250 U/GM T; SODIUM CHLORIDE; TYLENOL325 M1 PEG; VITAMIN D50000 I3 PO
[2016-04-16 12:51] LABS: BASO % 0.1 % (0.0-1.0); EOS # 0.2 10*3/uL (0.0-0.4); EOS % 1.5 % (1.0-4.0); HEMATOCRIT 24.4 % (42.0-52.0); HEMOGLOBIN 6.9 g/dl (14.0-18.0); LYMPH # 2.3 10*3/uL (1.3-4.4); LYMPH % 21.9 % (27.0-41.0); MEAN CELL VOLUME 104.7 fl (80.0-94.0); MEAN CORPUSCULAR HGB 29.6 pg (27.0-31.0); MEAN CORPUSCULAR HGB CONC 28.3 g/dl (33.0-37.0); MEAN PLATELET VOLUME 11.1 fl (9.6-12.3); MONO # 0.5 10*3/uL (0.1-1.0); NEUT # 7.5 10*3/uL (2.3-7.9); NEUT % 71.2 % (47.0-73.0); PLATELET COUNT AUTOMATED 208 10*3/uL (130-400); RED BLOOD COUNT 2.33 10*6/uL (4.50-5.90); RED CELL DISTRI WIDTH 17.8 % (0-14.5); WHITE BLOOD COUNT 10.6 10*3/uL (4.8-10.8)
[2016-04-16] MEDS ORDERED: VENTOLIN 02.5 MG/3 M INH (12:57)
[2016-04-16] MEDS ORDERED: C COMPLEX PEG (12:58)
[2016-04-16] MEDS ORDERED: CALCIFEROL8000 IU/ML PEG (13:00)
[2016-04-16] MEDS ORDERED: HEPARIN LO10 UNIT/1 IV (13:04)
[2016-04-16 13:11] LABS: ALBUMIN 2.4 gm/dl (3.1-4.5); ALKALINE PHOSPHATASE 65 U/L (45-117); BILIRUBIN, TOTAL 0.2 mg/dl (0.2-1.0); BUN 83 mg/dl (7-24); CARBON DIOXIDE 33 mmol/L (21-32); EST GLOM FILT AFRICAN AMERICAN > 60 ml/min; GLUCOSE 162 mg/dL (65-99); POTASSIUM 3.7 mmol/L (3.5-5.1); SGOT/AST 220 IU/L (3-35); SGPT/ALT 250 U/L (12-78); TOTAL PROTEIN 8.3 gm/dL (6.4-8.2); TROPONIN I 0.023 ng/ml (<0.5)
[2016-04-16 13:15] LABS: CHLORIDE 134 mmol/L (98-107); SODIUM 174 mmol/L (136-145)
[2016-04-16] MEDS ORDERED: HUMALOG100 UNIT/1 SQ (13:59)
[2016-04-16] MEDS ORDERED: LANTUS100 U/ML SC (14:00)
[2016-04-16] MEDS ORDERED: METOPROLOL25 MG PEG (14:00)
[2016-04-16] MEDS ORDERED: NYSTATIN100000 U/M PO (14:01)
[2016-04-16] MEDS ORDERED: PERIDEX118 ML MM (14:02)
[2016-04-16] MEDS ORDERED: PROSOURCE ZAC PEG (14:04)
[2016-04-16] MEDS ORDERED: ZINC50 M4 PEG (14:04)
[2016-04-16 14:23] LABS: BILIRUBIN NEGATIVE (NEGATIVE); BLOOD 2+ (NEGATIVE); CLARITY SL CLOUDY (CLEAR); COLOR YELLOW (YELLOW); GLUCOSE NEGATIVE (NEGATIVE); KETONE NEGATIVE (NEGATIVE); LEUKO ESTERASE 3+ (NEGATIVE); NITRITE POSITIVE (NEGATIVE); PH 6.5 (5.0-9.0); PROTEIN 1+ (NEGATIVE); UROBILINOGEN 0.2 E.U./dl (0.2-1.0)
[2016-04-16 14:41] LABS: BACTERIA TRACE; MUCOUS TRACE; URINE REFLEX COMMENT YES (NO); WBC 21-30 wbc/hpf (0-5)
[2016-04-16 16:17] LABS: ABG BASE EXCESS 7.2 mmol/L (-2.0-2.0); ABG CO2 CONTENT 32.3 mmol/L (23-27); ABG TEMPERATURE 99.5 F (98.0-99.0); ARTERIAL BLOOD GAS PH 7.472 (7.35-7.45)
[2016-04-16 19:07] LABS: CKMB 0.9 ng/ml (0.5-3.6); TROPONIN I 0.024 ng/ml (<0.5)
[2016-04-16 22:05] LABS: ALBUMIN 2.2 gm/dl (3.1-4.5); ALKALINE PHOSPHATASE 59 U/L (45-117); BILIRUBIN, TOTAL 0.3 mg/dl (0.2-1.0); BUN 78 mg/dl (7-24); CARBON DIOXIDE 29 mmol/L (21-32); EST GLOM FILT AFRICAN AMERICAN > 60 ml/min; GLUCOSE 200 mg/dL (65-99); POTASSIUM 3.5 mmol/L (3.5-5.1); SGOT/AST 145 IU/L (3-35); SGPT/ALT 211 U/L (12-78)
[2016-04-16 22:13] LABS: CHLORIDE 134 mmol/L (98-107); SODIUM 172 mmol/L (136-145)
[2016-04-17] VITALS (9 sets, daily range): BP systolic 97–112; BP diastolic 49–64
[2016-04-17 00:48] LABS: CKMB 1.1 ng/ml (0.5-3.6); TROPONIN I 0.024 ng/ml (<0.5)
[2016-04-17 06:22] LABS: BASO % 0.2 % (0.0-1.0); EOS # 0.3 10*3/uL (0.0-0.4); EOS % 1.4 % (1.0-4.0); HEMATOCRIT 30.1 % (42.0-52.0); HEMOGLOBIN 8.8 g/dl (14.0-18.0); IG # 0.1 10*3/uL (0.0-0.1); LYMPH # 2.3 10*3/uL (1.3-4.4); LYMPH % 12.9 % (27.0-41.0); MEAN CORPUSCULAR HGB 28.5 pg (27.0-31.0); MEAN CORPUSCULAR HGB CONC 29.2 g/dl (33.0-37.0); MEAN PLATELET VOLUME 12.8 fl (9.6-12.3); MONO # 0.7 10*3/uL (0.1-1.0); MONO % 3.9 % (3.0-9.0); NEUT # 14.3 10*3/uL (2.3-7.9); NEUT % 81.2 % (47.0-73.0); NUCLEATED RED BLOOD CELL 0.1 % (0.0-0.0); PLATELET COUNT AUTOMATED 189 10*3/uL (130-400); RED BLOOD COUNT 3.09 10*6/uL (4.50-5.90); RED CELL DISTRI WIDTH 21.4 % (0-14.5); WHITE BLOOD COUNT 17.6 10*3/uL (4.8-10.8)
[2016-04-17 06:30] LABS: ALBUMIN 2.1 gm/dl (3.1-4.5); ALKALINE PHOSPHATASE 59 U/L (45-117); BILIRUBIN, TOTAL 0.5 mg/dl (0.2-1.0); BUN 71 mg/dl (7-24); CARBON DIOXIDE 30 mmol/L (21-32); CHOLESTEROL 81 mg/dL (<200); EST GLOM FILT AFRICAN AMERICAN > 60 ml/min; FREE T4 1.13 ng/dl (0.76-1.46); GLUCOSE 122 mg/dL (65-99); HDL CHOLESTEROL 28 mg/dl (40-60); LDL CHOLESTEROL 32 mg/dL (9-159); MAGNESIUM 2.9 mg/dL (1.5-2.1); PHOSPHOROUS 2.1 mg/dL (2.5-4.9); POTASSIUM 3.4 mmol/L (3.5-5.1); SGOT/AST 109 IU/L (3-35); SGPT/ALT 190 U/L (12-78); TOTAL PROTEIN 7.6 gm/dL (6.4-8.2); TRIGLYCERIDES 106 mg/dl (<150); VLDL CHOLESTEROL 21 mg/dL (6-40)
[2016-04-17 06:31] LABS: MEAN CELL VOLUME 97.4 fl (80.0-94.0)
[2016-04-17 06:32] LABS: TROPONIN I 0.025 ng/ml (<0.5)
[2016-04-17 06:37] LABS: CHLORIDE 133 mmol/L (98-107); SODIUM 172 mmol/L (136-145)
[2016-04-17 06:43] LABS: INTERNATIONAL NORM RATIO 1.1 (2.0-3.5); PROTHROMBIN TIME 11.3 SECONDS (9.0-12.4)
[2016-04-17 06:58] LABS: HEMOGLOBIN A1c 6.1 % (4.8-5.6)
[2016-04-17 07:42] LABS: VITAMIN D, 25-HYDROXY 53.8 ng/mL (30-100)
[2016-04-17 07:43] LABS: FOLIC ACID 21.11 ng/mL (>5.38)
[2016-04-17 12:18] LABS: BUN 71 mg/dl (7-24); CARBON DIOXIDE 29 mmol/L (21-32); EST GLOM FILT AFRICAN AMERICAN > 60 ml/min; GLUCOSE 232 mg/dL (65-99); POTASSIUM 3.3 mmol/L (3.5-5.1)
[2016-04-17 12:22] LABS: SODIUM 165 mmol/L (136-145)
[2016-04-17 12:23] LABS: CHLORIDE 128 mmol/L (98-107)
[2016-04-17 19:35] LABS: CARBON DIOXIDE 31 mmol/L (21-32); EST GLOM FILT AFRICAN AMERICAN > 60 ml/min; GLUCOSE 190 mg/dL (65-99); POTASSIUM 3.5 mmol/L (3.5-5.1)
[2016-04-17 19:40] LABS: BUN 59 mg/dl (7-24)
[2016-04-17 19:42] LABS: CHLORIDE 128 mmol/L (98-107); SODIUM 166 mmol/L (136-145)
[2016-04-18] VITALS: BP 100/54
[2016-04-18 04:00] VITALS: BP 106/60
[2016-04-18 06:04] LABS: BASO % 0.1 % (0.0-1.0); EOS # 0.3 10*3/uL (0.0-0.4); EOS % 1.7 % (1.0-4.0); HEMATOCRIT 26.5 % (42.0-52.0); IG # 0.1 10*3/uL (0.0-0.1); LYMPH # 1.9 10*3/uL (1.3-4.4); LYMPH % 11.9 % (27.0-41.0); MEAN CELL VOLUME 95.7 fl (80.0-94.0); MEAN CORPUSCULAR HGB 28.9 pg (27.0-31.0); MEAN CORPUSCULAR HGB CONC 30.2 g/dl (33.0-37.0); MEAN PLATELET VOLUME 12.7 fl (9.6-12.3); MONO # 0.8 10*3/uL (0.1-1.0); NEUT # 12.6 10*3/uL (2.3-7.9); NEUT % 80.8 % (47.0-73.0); NUCLEATED RED BLOOD CELL 0.1 % (0.0-0.0); PLATELET COUNT AUTOMATED 162 10*3/uL (130-400); RED BLOOD COUNT 2.77 10*6/uL (4.50-5.90); RED CELL DISTRI WIDTH 20.3 % (0-14.5); WHITE BLOOD COUNT 15.7 10*3/uL (4.8-10.8)
[2016-04-18 06:26] LABS: ALBUMIN 1.9 gm/dl (3.1-4.5); ALKALINE PHOSPHATASE 54 U/L (45-117); BILIRUBIN, TOTAL 0.4 mg/dl (0.2-1.0); BUN 52 mg/dl (7-24); CARBON DIOXIDE 30 mmol/L (21-32); CHLORIDE 126 mmol/L (98-107); EST GLOM FILT AFRICAN AMERICAN > 60 ml/min; GLUCOSE 95 mg/dL (65-99); POTASSIUM 3.4 mmol/L (3.5-5.1); PREALBUMIN 14 mg/dl (20-40); SGOT/AST 44 IU/L (3-35); SGPT/ALT 108 U/L (12-78); TOTAL PROTEIN 6.8 gm/dL (6.4-8.2)
[2016-04-18 06:34] LABS: SODIUM 161 mmol/L (136-145)
[2016-04-18 08:00] VITALS: BP 108/60
[2016-04-18 12:00] VITALS: BP 113/62
[2016-04-18 12:05] LABS: BUN 44 mg/dl (7-24); CARBON DIOXIDE 28 mmol/L (21-32); CHLORIDE 124 mmol/L (98-107); EST GLOM FILT AFRICAN AMERICAN > 60 ml/min; GLUCOSE 136 mg/dL (65-99); POTASSIUM 3.3 mmol/L (3.5-5.1); SODIUM 159 mmol/L (136-145)
[2016-04-18 15:20] LABS: BILIRUBIN NEGATIVE (NEGATIVE); BLOOD 3+ (NEGATIVE); CLARITY CLOUDY (CLEAR); COLOR YELLOW (YELLOW); GLUCOSE NEGATIVE (NEGATIVE); KETONE NEGATIVE (NEGATIVE); LEUKO ESTERASE 2+ (NEGATIVE); NITRITE NEGATIVE (NEGATIVE); PROTEIN 1+ (NEGATIVE); SPECIFIC GRAVITY 1.015 (1.005-1.030); UROBILINOGEN 0.2 E.U./dl (0.2-1.0)
[2016-04-18 15:41] LABS: BACTERIA 1+; RBC TNTC rbc/hpf (0-2); URINE REFLEX COMMENT YES (NO); WBC TNTC wbc/hpf (0-5)
[2016-04-18 16:00] VITALS: BP 111/65
[2016-04-18 20:00] VITALS: BP 98/56
[2016-04-19] VITALS: BP 114/63
[2016-04-19 04:00] VITALS: BP 126/76
[2016-04-19 06:04] LABS: ALBUMIN 1.9 gm/dl (3.1-4.5); CARBON DIOXIDE 27 mmol/L (21-32); CHLORIDE 118 mmol/L (98-107); EST GLOM FILT AFRICAN AMERICAN > 60 ml/min; GLUCOSE 83 mg/dL (65-99); PHOSPHOROUS 2.4 mg/dL (2.5-4.9); POTASSIUM 3.2 mmol/L (3.5-5.1); SODIUM 154 mmol/L (136-145)
[2016-04-19 06:07] LABS: BUN 31 mg/dl (7-24)
[2016-04-19 06:10] LABS: BASO % 0.2 % (0.0-1.0); EOS # 0.4 10*3/uL (0.0-0.4); EOS % 3.3 % (1.0-4.0); HEMATOCRIT 26.5 % (42.0-52.0); HEMOGLOBIN 8.2 g/dl (14.0-18.0); IG # 0.1 10*3/uL (0.0-0.1); LYMPH # 1.6 10*3/uL (1.3-4.4); LYMPH % 13.7 % (27.0-41.0); MEAN CORPUSCULAR HGB 29.4 pg (27.0-31.0); MEAN CORPUSCULAR HGB CONC 30.9 g/dl (33.0-37.0); MEAN PLATELET VOLUME 13.2 fl (9.6-12.3); MONO # 0.5 10*3/uL (0.1-1.0); MONO % 4.4 % (3.0-9.0); NEUT # 9.1 10*3/uL (2.3-7.9); PLATELET COUNT AUTOMATED 158 10*3/uL (130-400); RED BLOOD COUNT 2.79 10*6/uL (4.50-5.90); RED CELL DISTRI WIDTH 18.6 % (0-14.5); WHITE BLOOD COUNT 11.7 10*3/uL (4.8-10.8)
[2016-04-19 08:00] VITALS: BP 116/67
[2016-04-19 12:00] VITALS: BP 120/70
[2016-04-19 16:00] VITALS: BP 120/73
[2016-04-19 20:00] VITALS: BP 117/65
[2016-04-20] VITALS: BP 122/75
[2016-04-20 04:00] VITALS: BP 123/75
[2016-04-20 06:18] LABS: BASO % 0.1 % (0.0-1.0); EOS # 0.3 10*3/uL (0.0-0.4); EOS % 3.6 % (1.0-4.0); HEMATOCRIT 27.8 % (42.0-52.0); HEMOGLOBIN 8.9 g/dl (14.0-18.0); LYMPH # 1.3 10*3/uL (1.3-4.4); LYMPH % 15.4 % (27.0-41.0); MEAN CORPUSCULAR HGB 29.1 pg (27.0-31.0); MEAN PLATELET VOLUME 12.9 fl (9.6-12.3); MONO # 0.4 10*3/uL (0.1-1.0); MONO % 4.7 % (3.0-9.0); NEUT # 6.6 10*3/uL (2.3-7.9); NEUT % 75.7 % (47.0-73.0); PLATELET COUNT AUTOMATED 151 10*3/uL (130-400); RED BLOOD COUNT 3.06 10*6/uL (4.50-5.90); RED CELL DISTRI WIDTH 16.9 % (0-14.5); WHITE BLOOD COUNT 8.7 10*3/uL (4.8-10.8)
[2016-04-20 06:22] LABS: ALBUMIN 1.8 gm/dl (3.1-4.5); ALKALINE PHOSPHATASE 60 U/L (45-117); BILIRUBIN, TOTAL 0.3 mg/dl (0.2-1.0); CARBON DIOXIDE 25 mmol/L (21-32); CHLORIDE 105 mmol/L (98-107); EST GLOM FILT AFRICAN AMERICAN > 60 ml/min; GLUCOSE 163 mg/dL (65-99); POTASSIUM 3.4 mmol/L (3.5-5.1); SGOT/AST 28 IU/L (3-35); SGPT/ALT 53 U/L (12-78); TOTAL PROTEIN 6.4 gm/dL (6.4-8.2)
[2016-04-20 06:24] LABS: BUN 20 mg/dl (7-24); SODIUM 140 mmol/L (136-145)
[2016-04-20 06:35] LABS: MEAN CELL VOLUME 90.8 fl (80.0-94.0)
[2016-04-20 08:00] VITALS: BP 108/74
[2016-04-20 08:29] LABS: MAGNESIUM 1.8 mg/dL (1.5-2.1)
[2016-04-20 12:00] VITALS: BP 122/74
[2016-04-20 16:00] VITALS: BP 107/71
[2016-04-20 20:00] VITALS: BP 133/80
[2016-04-21] VITALS (7 sets, daily range): BP systolic 93–120; BP diastolic 54–71
[2016-04-21 07:29] LABS: BASO % 0.2 % (0.0-1.0); EOS # 0.3 10*3/uL (0.0-0.4); EOS % 3.3 % (1.0-4.0); HEMATOCRIT 28.9 % (42.0-52.0); HEMOGLOBIN 9.5 g/dl (14.0-18.0); IG # 0.1 10*3/uL (0.0-0.1); LYMPH # 1.6 10*3/uL (1.3-4.4); MEAN CELL VOLUME 88.7 fl (80.0-94.0); MEAN CORPUSCULAR HGB 29.1 pg (27.0-31.0); MEAN CORPUSCULAR HGB CONC 32.9 g/dl (33.0-37.0); MEAN PLATELET VOLUME 12.2 fl (9.6-12.3); MONO # 0.6 10*3/uL (0.1-1.0); MONO % 5.7 % (3.0-9.0); NEUT # 7.2 10*3/uL (2.3-7.9); NEUT % 74.2 % (47.0-73.0); PLATELET COUNT AUTOMATED 162 10*3/uL (130-400); RED BLOOD COUNT 3.26 10*6/uL (4.50-5.90); RED CELL DISTRI WIDTH 16.4 % (0-14.5); WHITE BLOOD COUNT 9.8 10*3/uL (4.8-10.8)
[2016-04-21 07:58] LABS: ALBUMIN 1.9 gm/dl (3.1-4.5); BUN 25 mg/dl (7-24); CARBON DIOXIDE 24 mmol/L (21-32); CHLORIDE 100 mmol/L (98-107); EST GLOM FILT AFRICAN AMERICAN > 60 ml/min; GLUCOSE 104 mg/dL (65-99); PHOSPHOROUS 2.4 mg/dL (2.5-4.9); POTASSIUM 3.9 mmol/L (3.5-5.1); SODIUM 134 mmol/L (136-145)
[2016-04-22 04:00] VITALS: BP 97/53
[2016-04-22 05:37] LABS: ALBUMIN 1.8 gm/dl (3.1-4.5); BUN 23 mg/dl (7-24); CARBON DIOXIDE 24 mmol/L (21-32); CHLORIDE 99 mmol/L (98-107); EST GLOM FILT AFRICAN AMERICAN > 60 ml/min; GLUCOSE 115 mg/dL (65-99); PHOSPHOROUS 2.3 mg/dL (2.5-4.9); POTASSIUM 3.7 mmol/L (3.5-5.1); SODIUM 132 mmol/L (136-145)
[2016-04-22 06:06] LABS: BASO % 0.2 % (0.0-1.0); EOS # 0.3 10*3/uL (0.0-0.4); HEMATOCRIT 25.7 % (42.0-52.0); HEMOGLOBIN 8.5 g/dl (14.0-18.0); LYMPH # 1.6 10*3/uL (1.3-4.4); LYMPH % 16.8 % (27.0-41.0); MEAN CELL VOLUME 88.6 fl (80.0-94.0); MEAN CORPUSCULAR HGB 29.3 pg (27.0-31.0); MEAN CORPUSCULAR HGB CONC 33.1 g/dl (33.0-37.0); MEAN PLATELET VOLUME 12.9 fl (9.6-12.3); MONO # 0.7 10*3/uL (0.1-1.0); MONO % 6.9 % (3.0-9.0); NEUT % 72.7 % (47.0-73.0); PLATELET COUNT AUTOMATED 155 10*3/uL (130-400); WHITE BLOOD COUNT 9.6 10*3/uL (4.8-10.8)
[2016-04-22 08:00] VITALS: BP 102/54
[2016-04-22 12:00] VITALS: BP 109/63
[2016-04-22 16:00] VITALS: BP 112/63
[2016-04-22 20:00] VITALS: BP 109/65
[2016-04-23] VITALS (7 sets, daily range): BP systolic 93–167; BP diastolic 56–94
[2016-04-23 06:35] LABS: BUN 25 mg/dl (7-24); CARBON DIOXIDE 24 mmol/L (21-32); CHLORIDE 96 mmol/L (98-107); EST GLOM FILT AFRICAN AMERICAN > 60 ml/min; GLUCOSE 124 mg/dL (65-99); PHOSPHOROUS 2.9 mg/dL (2.5-4.9); POTASSIUM 3.6 mmol/L (3.5-5.1); SODIUM 131 mmol/L (136-145)
[2016-04-23] MEDS ORDERED: OMEPRAZOLE40 MG PEG (15:30)
[2016-04-23] MEDS ORDERED: BACTRIM DS 8001 TA1 PO (15:46)
[2016-04-23] MEDS ORDERED: CIPROFLOXACIN500 M4 PEG (15:46)
[2016-04-24 04:00] VITALS: BP 110/67
[2016-04-24 07:52] LABS: BUN 23 mg/dl (7-24); EST GLOM FILT AFRICAN AMERICAN > 60 ml/min
[2016-04-24 08:00] VITALS: BP 126/68
[2016-05-17] MEDS ORDERED: ATIVAN0.5 MG PO (09:40)
[2016-05-17] MEDS ORDERED: MORPHINE SULFAT15 MG PO (09:41)
[2016-05-17] MEDS ORDERED: PRO-STAT 64 3030 M2 (09:42)
== END 2016-04-24 10:15 | disposition other institution (70) | DRG 870 ==
LOC: ED 11:58 → EDHOLD 13:31 → ICCU 13:31
PROVIDERS: Emergency Medicine; Family Medicine; Internal Medicine; Internal Medicine Critical Care Medicine; Internal Medicine Hospice and Palliative Medicine; Internal Medicine Nephrology
PROC: 5A1955Z Respiratory Ventilation, Greater than 96 Consecutive Hours (ICD-10-PCS; principal; 2016-04-16)
PROC: 30233N1 Transfusion of Nonautologous Red Blood Cells into Peripheral Vein, Percutaneous Approach (ICD-10-PCS; principal; 2016-04-16)
PROC: 0DJ08ZZ Inspection of Upper Intestinal Tract, Via Natural or Artificial Opening Endoscopic (ICD-10-PCS; 2016-04-18)
DX: A41.52 Sepsis due to Pseudomonas (principal); E43 Unspecified severe protein-calorie malnutrition; N17.9 Acute kidney failure, unspecified; Z99.11 Dependence on respirator [ventilator] status; L89.154 Pressure ulcer of sacral region, stage 4; E87.1 Hypo-osmolality and hyponatremia; B35.1 Tinea unguium; E87.0 Hyperosmolality and hypernatremia; J96.11 Chronic respiratory failure with hypoxia; N39.0 Urinary tract infection, site not specified; B37.0 Candidal stomatitis; K29.80 Duodenitis without bleeding; J44.9 Chronic obstructive pulmonary disease, unspecified; I10 Essential (primary) hypertension; E78.5 Hyperlipidemia, unspecified; E55.9 Vitamin D deficiency, unspecified; E87.6 Hypokalemia; D53.9 Nutritional anemia, unspecified; E11.65 Type 2 diabetes mellitus with hyperglycemia; E87.8 Other disorders of electrolyte and fluid balance, not elsewhere classified; E87.5 Hyperkalemia; J20.9 Acute bronchitis, unspecified; Z86.73 Personal history of transient ischemic attack (TIA), and cerebral infarction without residual deficits; Z98.890 Other specified postprocedural states; Z87.19 Personal history of other diseases of the digestive system; Z95.1 Presence of aortocoronary bypass graft; Z79.899 Other long term (current) drug therapy; Z79.01 Long term (current) use of anticoagulants; Z93.0 Tracheostomy status; Z79.4 Long term (current) use of insulin; Z68.22 Body mass index [BMI] 22.0-22.9, adult